=== PATIENT | female | born 1995 | race Two or more races ===

== ENCOUNTER 2021-08-15 01:36 | Emergency (ER) | payer MEDICAID ==
[~2021-08-15] VITALS: Ht 170.2 cm; Wt 63.0 kg
[2021-08-15] MEDS ORDERED: KETOROLAC 30MG/ML VIAL IM STA (03:18)
[2021-08-15 04:18] LABS: BASOPHILS % 0.4 % (0.0-2.0); EOSINOPHILS % 0.7 % (0.0-5.0); HEMATOCRIT. 34.3 % (36.0-48.0); HEMOGLOBIN. 11.7 g/dL (12.0-16.0); LYMPHOCYTES % 14.8 % (20.0-50.0); MEAN CORPUSCULAR HEMOGLOBIN 31.4 pg (28.0-32.0); MEAN CORPUSCULAR VOLUME 92.2 fL (81.0-99.0); MEAN PLATELET VOLUME 8.4 fl (7.4-10.4); MONOCYTES % 7.4 % (2.0-8.0); NEUTROPHILS % 76.7 % (40.0-76.0); PLATELET 323 x1000/uL (130-400); RED BLOOD CELL COUNT 3.72 mill/uL (4.2-5.4); RED CELL DISTRIBUTION WIDTH 12.6 % (11.6-14.6)
[2021-08-15 04:25] LABS: CLARITY URINE CLOUDY (CLEAR); COLOR URINE ORANGE (YELLOW); KETONES URINE NEGATIVE (NEGATIVE); LEUKOCYTE ESTERASE URINE 2+ (NEGATIVE); NITRITE URINE NEGATIVE (NEGATIVE); OCCULT BLOOD URINE 3+ (NEGATIVE); PROTEIN URINE 3+ (NEGATIVE); SPECIFIC GRAVITY URINE 1.025 (1.005-1.030)
[2021-08-15 04:26] LABS: CHLORIDE 108 mEq/L (98-107)
[2021-08-15] MEDS ORDERED: CEFTRIAXONE 1 G PREMIX 50 ML IV ONE (05:00)
[2021-08-15] MEDS ORDERED: T3 PO (05:42)
[2021-08-15] MEDS ORDERED: IBUP-2029 MT (05:42)
[2021-08-15] MEDS ORDERED: CEPH500T MT (05:42)
[2021-08-15 06:30] VITALS: BP 122/76
== END 2021-08-15 07:23 | disposition home or self-care (01) ==
LOC: ER 01:36
DX: N10 Acute pyelonephritis (principal)
CPT/HCPCS: 36415; 76830; 76856; 80053; 81003; 83690; 85025; 87077; 87086; 87186; 96365; 96372; 99284; J0696; J1885